=== PATIENT | male | born 1990 | race American Indian/Alaskan Native ===

== ENCOUNTER 2024-09-20 11:19 | Emergency (ER) | payer OTHER, SELFPAY ==
[2024-09-20 11:37] VITALS: BP 141/92; PULSE 91; RESP 18; TEMP 36.6; O2SAT 95; BMI 20.5
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
== END 2024-09-20 13:34 | disposition home or self-care (01) ==
PROVIDERS: Emergency Provider Emergency Medicine
DX: Z04.1 Encounter for examination and observation following transport accident (principal)
CPT/HCPCS: 99281